=== PATIENT | male | born 1970 | race Caucasian/White ===

== ENCOUNTER 2016-12-14 17:04 | Observation (INO) | payer OTHER ==
[~2016-12-14] VITALS: Ht 172.7 cm; Wt 82.0 kg
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
[2016-12-14] MEDS ORDERED: Ondansetron 2 mg/mL 2 mL Inj IVPUSH PRN ×3 (17:15→21:40)
[2016-12-14] MEDS: HYDROmorphone 0.5 mg/0.5 mL iSecure Syringe IVPUSH PRN ×2 (17:15→20:09)
[2016-12-14] MEDS ORDERED: 0.9% Sodium Chloride 1,000 ML IV ONE (17:15)
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
[2016-12-14 17:23] LABS: BASOPHILS % (AUTO) 0.1 % (0-3); EOSINOPHILS % (AUTO) 3.3 % (0-5); MONOCYTES % (AUTO) 6.8 % (4-12); Mean Corpuscular Hemoglobin 32.9 pg (27.0-35.0); Mean Corpuscular Volume 92.7 fL (81-100); NEUTROPHILS % (AUTO) 40.4 % (40-74); Platelet Count 268 bil/L (150-400)
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
[2016-12-14] MEDS ORDERED: HYDROmorphone 1 mg/mL Inj ONE (17:30)
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
[2016-12-14 17:44] LABS: INR 0.95 ratio
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
[2016-12-14 19:29] LABS: APPEARANCE,URINE CLEAR (CLEAR,HAZY); COLOR,URINE STRAW (YELLOW); OCCULT BLOOD,URINE LARGE (NEGATIVE); PH,URINE 5.5 (5.0-8.0); UROBILINOGEN,URINE NORMAL (NORMAL)
[2016-12-14] MEDS ORDERED: Bupivacaine 0.5%/EPI 50 mL Inj ONE (19:34)
[2016-12-14] MEDS ORDERED: 0.9% Sodium Chloride 1,000 ML IV SCH (20:27)
[2016-12-14] MEDS ORDERED: oxyCODONE-Acetamin 5-325 mg Tablet PO PRN (20:30)
[2016-12-14] MEDS ORDERED: Alum-Mag Hydrox-Simeth 30 mL Suspension PO PRN (20:30)
[2016-12-14 21:35] VITALS: BP 102/68; PULSE 95; RESP 20; O2SAT 95
[2016-12-14] MEDS ORDERED: HYDROmorphone 1 mg/mL Inj IVPUSH PRN (21:40)
[2016-12-14] MEDS ORDERED: Polyethylene Glycol (PEG) 17 Gm Powder PO PRN (21:40)
[2016-12-14] MEDS ORDERED: Acetaminophen IV 1,000 MG in IV Premix 1 EACH IV PRN (21:40)
[2016-12-14] MEDS ORDERED: MetoCLOpramide 5 mg/mL 2 mL Inj IVPUSH PRN (21:40)
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
[2016-12-14] MEDS ORDERED: IBUP200C PO (23:07)
[2016-12-14] MEDS: Lactated Ringer's 1,000 ML IV SCH (23:36)
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
[2016-12-15 01:45] VITALS: BP 100/64; PULSE 101; RESP 20; O2SAT 93
[2016-12-15 05:55] VITALS: BP 106/67; PULSE 84; RESP 20; O2SAT 96
[2016-12-15 06:08] LABS: BASOPHILS % (AUTO) 0 % (0-3); EOSINOPHILS % (AUTO) 1.5 % (0-5); MONOCYTES % (AUTO) 10.7 % (4-12); Mean Corpuscular Volume 94.3 fL (81-100); NEUTROPHILS % (AUTO) 66.5 % (40-74); Platelet Count 185 bil/L (150-400)
[2016-12-15] MEDS: Lactated Ringer's 1,000 ML IV SCH (08:18)
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
[2016-12-15] MEDS ORDERED: OXYC1TAB24 PO (09:58)
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
--- NOTE | 2016-12-15 11:16 | NUR ---
Evaluation completed. Please go to "Notes" then click on "Assessments and Notes" (bottom left corner of screen). Then select appropriate discipline tab on top of screen.
[2016-12-15 11:22] VITALS: BP 107/72; PULSE 84; RESP 20; O2SAT 96
--- NOTE | 2016-12-15 12:48 | NUR ---
Discharge Patient ambulated out with to personal vehicle with all belongings with him. IV was DC'd intact and the patient received pain medication before discharge. Discharge information was gone over with the patient and he verbalized understanding of the information. Educational handouts and prescriptions were given to patient. Informed patient about scheduled an appointment for suture removal and about care of his head laceration.
== END 2016-12-15 12:48 | disposition home or self-care (01) ==
LOC: SED 17:04 → OSC 20:51
PROVIDERS: ADMIT Surgery; ATTEND Surgery
DX: S22.41XA Multiple fractures of ribs, right side, initial encounter for closed fracture (principal); S01.01XA Laceration without foreign body of scalp, initial encounter; V49.40XA Driver injured in collision with unspecified motor vehicles in traffic accident, initial encounter; Y93.I9 Activity, other involving external motion; F10.129 Alcohol abuse with intoxication, unspecified; Y90.7 Blood alcohol level of 200-239 mg/100 ml; F17.210 Nicotine dependence, cigarettes, uncomplicated; M43.17 Spondylolisthesis, lumbosacral region; M50.30 Other cervical disc degeneration, unspecified cervical region
CPT/HCPCS: 12054; 36415; 70450; 71010; 71260; 72125; 72170; 74177; 80048; 80053; 81001; 85014; 85018; 85025; 85610; 85730; 86850; 93005; 94799; 96361; 96374; 96375; 97161; 99291; G0378; G0480; J0131; J1170; J1885; J2405; J7030; J7120; Q9967